=== PATIENT | female | born 1965 | race African-American/Black ===

== ENCOUNTER 2021-01-15 13:06 | Emergency (ER) | payer MEDICAID, OTHER ==
[~2021-01-15] VITALS: Ht 154.9 cm; Wt 93.6 kg
[2021-01-15] MEDS ORDERED: LORAZEPAM 0.5MG TABLET PO ONE (15:30)
[2021-01-15 16:21] VITALS: BP 140/78
== END 2021-01-15 16:21 | disposition home or self-care (01) ==
LOC: ER 13:06
DX: F41.9 Anxiety disorder, unspecified (principal); I10 Essential (primary) hypertension; E78.00 Pure hypercholesterolemia, unspecified; Z98.890 Other specified postprocedural states; Z90.710 Acquired absence of both cervix and uterus
CPT/HCPCS: 99283